=== PATIENT | female | born 1980 | race Caucasian/White ===

== ENCOUNTER 2016-11-06 19:03 | Emergency (ER) | payer OTHER ==
[2016-11-06 19:30] LABS: COLOR YELLOW; LEUKOCYTE ESTERASE,URINE TRACE (NEGATIVE); NITRITE,URINE NEGATIVE (NEGATIVE); PH,URINE 7.5 (5.0-7.5)
--- NOTE | 2016-11-06 19:56 | UCPHY ---
H & P Time Seen by Provider: 11/06/16 19:08 Patient Type: New HPI/ROS: 36-year-old female presents complaining of fevers chills cough, diffuse muscle aches also with urinary frequency. Review of systems As per HPI General positive fever positive chills positive body aches HEENT no eye pain no eye discharge. No eye redness, no sore throat Respiratory positive cough no shortness of breath Cardiac no chest pain, no peripheral edema GI no abdominal pain, no diarrhea, no constipation, no nausea, no vomiting no flank pain, no hematuria, positive dysuria Musculoskeletal no myalgias, no joint pain Heme no easy bruising, no easy bleeding Endo no polyuria, no polydipsia Skin no rashes, no pruritus Neuro no syncope, no dizziness, no headaches Psych is no suicidal ideation, no homicidal ideation Past Medical/Surgical History: GERD Sinus tachycardia Social History: Denies alcohol or drug in excess Smoking Status: Never smoked Physical Exam: 36-year-old female Alert and oriented nontoxic appearance, no acute distress, afebrile Atraumatic normocephalic Extraocular muscles intact, anicteric Nares mild yellowish discharge Oropharynx mild erythema no tonsillar swelling no exudate no uvular deviation, tolerating own secretions Neck supple no lymphadenopathy Lungs clear to auscultation bilaterally Heart rapid rate regular rhythm Abdomen normoactive bowel sounds soft nontender Extremities no cyanosis clubbing or edema Skin no rash Constitutional: Initial Vital Signs Temperature (C) 37.7 C 11/06/16 19:19 Heart Rate 147 H 11/06/16 19:19 Respiratory Rate 20 11/06/16 19:19 Blood Pressure 167/95 H 11/06/16 19:19 O2 Sat (%) 94 11/06/16 19:19 O2 Delivery Mode Room Air Allergies/Adverse Reactions: No Known Allergies Allergy (Unverified 11/06/16 19:17) Home Medications: Medication Instructions Recorded Advil Cold & Sinus Caplet 11/06/16 Control 11/06/16 Cephalexin 500 mg PO BID #14 tablet 11/06/16 Omeprazole 11/06/16 Oseltamivir Phosphate [Tamiflu 75 75 mg PO BID #10 cap 11/06/16 mg (*)] Tylenol 11/06/16 Medical Decision Making ED Course/Re-evaluation: Patient seen and evaluated for flu-like symptoms as well as dysuria Differential diagnosis considered Influenza, bronchitis, viral, UTI Urinalysis positive for bacteria, white blood cells, leuk esterase, nitrate Influenza swab positive for influenza A CBC CMP D-dimer within normal limits While patient appeared nontoxic she was tachycardic, she did state that she is quite often tachycardic that has been noticed and worked up before She was given acetaminophen for her fever. IV was established IV fluids normal saline 2 L given Tamiflu 1st dose given Toradol 30 mg IV push for fever Patient's vitals markedly improved after hydration and fever reduction Impression Influenza a Urinary tract infection Plan Tamiflu Cephalexin Return if not feeling well Follow-up with PCP - Data Points Laboratory Results: Laboratory Results 11/06/16 19:52 11/06/16 19:52 Medications Given: Discontinued Medications Cephalexin (Keflex 500 Mg Prepack#4) 1 btl TAKEHOME EDNOW ONE PRN Reason: Protocol Stop: 11/06/16 20:36 Last Admin: 11/06/16 22:45 Dose: 1 btl Sodium Chloride (Ns) 1,000 mls @ 0 mls/hr IV ONCE ONE PRN Reason: Wide Open Stop: 11/06/16 19:58 Last Admin: 11/06/16 20:15 Dose: 1,000 mls Ketorolac Tromethamine (Toradol) 30 mg IVP EDNOW ONE Stop: 11/06/16 19:58 Last Admin: 11/06/16 20:17 Dose: 30 mg Oseltamivir Phosphate (Tamiflu) 75 mg PO EDNOW ONE Stop: 11/06/16 19:58 Last Admin: 11/06/16 20:20 Dose: 75 mg Departure - Departure Disposition: Home, Routine, Self-Care Clinical Impression: Influenza A, Urinary tract infection, Dehydration Condition: Good Instructions: Dehydration (ED), Urinary Tract Infection in Women (ED), Influenza (ED) Referrals: Patsy Merritt MD [Primary Care Provider] - As per Instructions Prescriptions: Cephalexin 500 mg PO BID #14 tablet Oseltamivir Phosphate [Tamiflu 75 mg (*)] 75 mg PO BID #10 cap - PQRS PQRS Measurement: na
[2016-11-06] MEDS ORDERED: OSELTAMIVIR PHOSPHATE 75 MG CAP PO ONE (19:57)
[2016-11-06] MEDS ORDERED: NS 1,000 ML IV ONE (19:57)
[2016-11-06] MEDS ORDERED: KETOROLAC 30 MG/1 ML SDV IVP ONE (19:57)
[2016-11-06 19:59] LABS: BACTERIA 2+ /hpf (NONE SEEN); MUCUS 2+ /lpf (NONE-1+); RBC,URINE NONE SEEN /hpf (0-3); WBC,URINE 15-25 /hpf (0-3)
[2016-11-06 20:12] LABS: % IMMATURE GRANULYOCYTES 0.2 % (0.0-1.1); ABSOLUTE IMMATURE GRANULOCYTES 0.02 10^3/uL (0.00-0.10); ADD DIFF? NO; ADD MORPH? NO; ADD SCAN? NO; ATYPICAL LYMPHOCYTE FLAG 30 (0-99); FRAGMENT RBC FLAG 0 (0-99); HEMATOCRIT 42.3 % (38.0-47.0); HEMOGLOBIN 13.8 g/dL (12.6-16.3); LEFT SHIFT FLG 0 (0-99); LIPEMIA HEMOLYSIS FLAG 80 (0-99); MEAN CELL HEMOGLOBIN 25.2 pg (27.9-34.1); MEAN CELL HEMOGLOBIN CONCENTR. 32.6 g/dL (32.4-36.7); MEAN CELL VOLUME 77.2 fL (81.5-99.8); MEAN PLATELET VOLUME 9.9 fL (8.7-11.7); PLATELET CLUMPS FLAG 0 (0-99); PLATELET COUNT 278 10^3/uL (150-400); RED BLOOD CELL COUNT 5.48 10^6/uL (4.18-5.33); RED CELL DISTRIBUTION WIDTH 13.4 % (11.5-15.2)
[2016-11-06 20:27] LABS: ANION GAP 19 mEq/L (8-16); CALCIUM 9.3 mg/dL (8.5-10.4); CARBON DIOXIDE 21 mEq/l (22-31); CHLORIDE 102 mEq/L (97-110); CREATININE 0.6 mg/dL (0.6-1.0); GLOMERULAR FILTRATION RATE > 60; GLUCOSE 99 mg/dL (70-100); POTASSIUM 3.4 mEq/L (3.5-5.2); SODIUM 142 mEq/L (134-144)
[2016-11-06] MEDS ORDERED: CEPHALEXIN 500MG PREPACK#4 BTL TAKEHOME ONE (20:35)
[2016-11-06 21:44] VITALS: RESP 16; TEMP 98.8
[2016-11-06 23:01] VITALS: BP 162/106; PULSE 129; O2SAT 95
== END 2016-11-06 22:45 | disposition home or self-care (01) ==
LOC: CED 19:03
DX: J10.1 Influenza due to other identified influenza virus with other respiratory manifestations (principal); N39.0 Urinary tract infection, site not specified
CPT/HCPCS: 80048-PO; 81003-PO; 81015-PO; 81025-PO; 84443-PO; 85025-PO; 85378-PO; 87400-PO; 96361-PO; 96374-PO; 99203-PO; G0463-PO; J1885